=== PATIENT | male | born 1985 | race Caucasian/White ===

== ENCOUNTER 2023-04-02 21:04 | Emergency (ER) | payer OTHER, SELFPAY ==
[2023-04-02 21:16] VITALS: BP 131/73; PULSE 102; O2SAT 96; BMI 27.0
[2023-04-02 22:11] VITALS: BP 109/70; PULSE 81; RESP 20; TEMP 37.2; O2SAT 96
--- NOTE | 2023-04-02 22:16 | ED.PSYCH ---
HPI - Psych General Chief Complaint: ETOH/Substance Use Stated Complaint: SUBSTANCE ABUSE Time Seen by Provider: 04/02/23 21:39 Source: patient Mode of arrival: EMS Limitations: no limitations History of Present Illness HPI Narrative: 37 yo male found sleeping at [facility] admits to heroin and cocaine use - denies any medical complaints to me. He denies SI/HI. He states he just wants to sleep and eat. He wants to go to [facility]. He plans to go in the AM. He notes he wants to sleep here tonight as he has nowhere else to go. He is upset his stuff was put in decon. MD complaint: substance abuse Onset (ago): week(s) Duration: intermittent History of same: Yes Relieving factors: none Exacerbating factors: drug use Context: recent drug abuse Associated psychiatric symptoms: none Associated symptoms: denies other symptoms Treatments prior to arrival: none Related Data Allergies Allergy/AdvReac Type Severity Reaction Status Date / Time Penicillins Allergy Unknown Verified 04/02/23 21:19 Review of Systems Review of Systems: Constitutional : No Fever, No Chills ENT/Mouth : No Ear Pain, No Nasal Congestion, No sore throat Eyes: No Eye Pain, No Swelling, No Redness Cardiovascular : No Chest Pain, No SOB Respiratory : No Cough, No Sputum, No Dyspnea Gastrointestinal : No Nausea, No Vomiting, No Diarrhea, No Hematochezia, No Melena Genitourinary : No Dysuria, No Urinary Frequency, No Hematuria Musculoskeletal : No Myalgias Skin : No Skin Lesions, No rash Neuro : No Weakness, No Numbness, No Paresthesias, No Dizziness, No Headache Psych : no Anxiety, no Depression, no SI/HI All other systems reviewed and are negative [facility] Past Medical History Attestation statement: The following information was validated with the patient. Source: old records reviewed Medical History Polysubstance abuse Social History Social History Patient Tobacco Use Status: Current everyday Tobacco user Substance Use Type: Crack/Cocaine and Heroin Advance Directives: No Advance Directives Information Provided: No Physical Exam Vital Signs: Vital Signs: Last Vital Signs Temp 98.9 F 04/02/23 22:11 Pulse 81 04/02/23 22:11 Resp 20 04/02/23 22:11 BP 109/70 04/02/23 22:11 Pulse Ox 96 04/02/23 22:11 O2 Del Method Room Air 04/02/23 22:11 BMI result Body Mass Index 27.0 Appearance: Alert. Oriented X3. No acute distress. slightly agitated Eyes: Pinpoint pupils ENT: Pharynx normal. Neck: Normal inspection. Neck supple. CVS: Normal heart rate and rhythm. Pulses normal. Respiratory: No respiratory distress. Breath sounds normal. Abdomen: Soft and nontender. Skin: Skin warm and dry. Normal skin color. Normal skin turgor. Extremities: No lower extremity edema. No calf ttp Neuro: Oriented X 3. No motor deficit. No sensory deficit. CN2-12 intact Course Course Course Narrative: Physician observation started at 1037pm. Patient placed in physician observation because the patient needed more time for addiction medicine to see the patient and aid in recovery services. At the time observation was started the patient's vitals were stable, patient is alert and oriented but slightly agitated, Neuro: nonfocal, CV RRR, Lungs clear Medical Decision Making Medical Decision Making [facility] Narrative: 37 yo male with PMH of substance abuse here with c/o heroin and cocaine use wants to go to detox - denies medical complaints no SI/HI. At this time will refer to addiction medicine team. He denies medical complaints. He is agitated slightly we put his belongingins in decon. Differential Diagnosis Differential Diagnoses: The differential diagnosis associated with the presentation includes substance abuse Admission/Observation Consideration of admission/observation: Escalation of care including admission/observation considered observe until addiction medicine team sees him. Lab Data [facility] Lab Attestation statement: I reviewed the patient's lab results. Independent Historian Clinical information obtained from an independent historian. History obtained from or confirmed by: EMS Social Determinants Patient?s care significantly limited by Social Determinants of Health including: Inadequate housing and Unemployment Discharge Plan Discharge Clinical Impression: Polysubstance abuse Patient Disposition: Still a Patient Instructions: Polysubstance Abuse (ED)
[2023-04-02 23:19] LABS: Amphetamine Screen Urine Not Detected (Not Detect); Barbiturates, Urine Not Detected (Not Detect); Benzodiazepines Screen Urine Not Detected (Not Detect); Cannabinoid Screen Urine POSITIVE (Not Detect); Cocaine Screen Urine POSITIVE (Not Detect); Fentanyl, urine POSITIVE (Not Detect); Opiate Screen Urine POSITIVE (Not Detect); Phencyclidine Screen Urine Not Detected (Not Detect)
[2023-04-03 00:33] VITALS: RESP 16
--- NOTE | 2023-04-03 00:34 | MHC.EDTECH ---
PT belongings locked in DECON
--- NOTE | 2023-04-03 07:22 | PC.NURSE ---
patient appears to be sleeping in stretcher in front of nurses station. patient respirations equal and unlabored. patient skin PWD awaiting recovery/care team
--- NOTE | 2023-04-03 10:56 | MHC.RECOVSUP ---
Addendum entered by Rodríguez Santana 04/03/23 13:26: No beds available for pt at this time. Pt informed to utilize [facility] and [facility] in the community and to follow up with [facility] first thing in the morning. Provider aware. Original Note: Met with pt in [facility] who was here for [facility]. Pt informs he has been using a few bags a day intravenously and has overdosed 1 times a few years ago. pt is not on MAT and is thinking about maybe getting on Suboxone when he goes to [facility]. Pt informed he is feeling ok and would like to go to [facility]. [facility] referral to [facility] sent waiting for response Provider aware.
--- NOTE | 2023-04-03 13:29 | PC.NURSE ---
patient resting in hallway stretcher, patient respirations equal and unlabored
== END 2023-04-03 14:14 | disposition home or self-care (01) ==
PROVIDERS: Emergency Provider Emergency Medicine
DX: F11.10 Opioid abuse, uncomplicated (principal); F14.10 Cocaine abuse, uncomplicated; F17.200 Nicotine dependence, unspecified, uncomplicated; Z71.6 Tobacco abuse counseling; Z79.899 Other long term (current) drug therapy
CPT/HCPCS: 80307; 99284